=== PATIENT | female | born 1970 | race Caucasian/White ===

== ENCOUNTER 2016-10-10 16:47 | Emergency (ER) | payer OTHER ==
[2016-10-10 16:48] VITALS: BMI 25.3
[2016-10-10 17:04] VITALS: RESP 18; TEMP 97.9
[2016-10-10 18:48] VITALS: BP 120/69; PULSE 81; O2SAT 98
--- NOTE | 2016-10-10 18:53 | US ---
PROCEDURE: Right breast ultrasound HISTORY: palpable mass s/p mastectomy COMPARISON: 03/09/2015. TECHNIQUE: Standard protocol for this study/examination. FINDINGS: Indeterminate mass 1 o'clock 3 cm from the nipple 5 mm. Right axillary lymph node 8 x 19 mm. Morphologically indeterminate. Additional smaller axillary lymph nodes less than 1 cm. Neither of these findings apparent previously. IMPRESSION: Indeterminate mass 1 o'clock 3 cm from nipple 5 mm. Indeterminate axillary lymph nodes. Neither findings apparent on prior study. No evidence of skin thickening, cysts or other pathologic process. BIRADS 3 Probably BenignRecommendation: Elective followup/surgical consultation.
--- NOTE | 2016-10-10 19:00 | C.PDOC ---
History Of Present Illness The patient, a 46 y/o female whose PMHx includes left breast cancer, in remission, s/p bilateral mastectomy with breast reconstruction 10 years ago, presents to the ED for evaluation of a painful mass to her right breast which was noted around 4 days ago. Patient states she is scheduled for a follow up with her surgeon next week. Patient presents to the ED for evaluation because she was "unable to wait." Otherwise, pt denies fever, chills, breast skin changes, nipple changes, redness, wounds, denies known recent trauma/injury, denies any other active complaints. Ambulate to ED for evaluation, not in any apparent distress. Time Seen by Provider: 10/10/16 17:05 Chief Complaint (Nursing): Breast Problem History Per: Patient History/Exam Limitations: no limitations Onset/Duration Of Symptoms: Days Current Symptoms Are (Timing): Still Present Additional History Per: Patient Past Medical History Reviewed: Historical Data, Nursing Documentation, Vital Signs Vital Signs: Last Vital Signs Temp 97.9 F 10/10/16 16:58 Pulse 81 10/10/16 18:46 Resp 18 10/10/16 18:46 BP 120/69 10/10/16 18:46 Pulse Ox 98 10/10/16 20:46 - Medical History PMH: Anemia, Malignancy (breast Ca) Denies: Chronic Kidney Disease Surgical History: No Surg Hx - [facility] Procedures ANESTH INJEC PERIPH NERV (11/24/13) BILAT RADICAL MASTECTOMY (11/24/13) DEEP INFERIOR EPIGASTRIC ARTERY DRAFTER REFRIGERATION (ADA) FLAP, FREE (11/24/13) EXCISE AXILLARY NODE (11/24/13) INJECT/INFUSE NEC (11/24/13) INSERTION OF TOTALLY IMPLANTABLE VASC ACCESS DEVIC (02/17/14) LOCAL EXCIS BREAST LES (10/02/13) OTHER OPEN UMBILICAL HERNIORRHAPHY (11/24/13) THORAX SFT TISS XRAY NEC (02/17/14) Family History: States: Unknown Family Hx - Social History Hx Tobacco Use: No Hx Alcohol Use: No Hx Substance Use: No - Immunization History Hx Tetanus Toxoid Vaccination: Yes Hx Influenza Vaccination: No Hx Pneumococcal Vaccination: Yes Review Of Systems Except As Marked, All Systems Reviewed And Found Negative. Constitutional: Negative for: Fever, Chills Musculoskeletal: Positive for: Other (+painful mass on right breast. no recent trauma/injury ) Skin: Positive for: Other (no skin changes over right breast ) Physical Exam - Physical Exam Appears: Well, Non-toxic, No Acute Distress Skin: Normal Color, Warm, No Rash Eye(s): bilateral: Normal Inspection Throat: Normal, No Erythema, No Exudate, No Drooling Neck: Normal ROM, Trachea Midline, Supple Lymphatic: No Axilla Node Tenderness Chest: Symmetrical, Other (Right breast: small palpable mass at 1 o'clock slightly tender, 2cm diameter. No erythema, no flactulance.) Cardiovascular: Rhythm Regular Respiratory: No Decreased Breath Sounds, No Stridor, No Wheezing Gastrointestinal/Abdominal: Soft, No Tenderness Extremity: Normal ROM, No Pedal Edema Neurological/Psych: Oriented x3, Normal Speech ED Course And Treatment O2 Sat by Pulse Oximetry: 98 (on RA) Pulse Ox Interpretation: Normal - CT Scan/US US Right breast Other Rad Studies (CT/US): Interpreted By Me, Read By Radiologist, Radiology Report Reviewed CT/US Interpretation: Accession No. : [id number]. Patient Name / ID : BENITA BRIAN / [id number]. Exam Date : 10/10/2016 17:55:34 ( Approved ). Study Comment : Sex / Age : F / 46Y. Creator : Wil Castellanos MD. Dictator : Wil Castellanos MD. Highwall Drill Operator : Child Development Professor : Wil Castellanos MD. Approver2 : Report Date : 10/10/2016 18:51:30. My Comment : . PROCEDURE: Right breast ultrasound. HISTORY: palpable mass s/p mastectomy. COMPARISON : 03/09/2015. TECHNIQUE: Standard protocol for this study/examination. FINDINGS: Indeterminate mass 1 o'clock 3 cm from the nipple 5 mm. Right axillary lymph node 8 x 19 mm. Morphologically indeterminate. Additional smaller axillary lymph nodes less than 1 cm. Neither of these findings apparent previously. IMPRESSION: Indeterminate mass 1 o'clock 3 cm from nipple 5 mm. Indeterminate axillary lymph nodes. Neither findings apparent on prior study. No evidence of skin thickening, cysts or other pathologic process. BIRADS 3 Probably BenignRecommendation: Elective followup/surgical consultation. Progress Note: US Right breast ordered and reviewed. On re-evaluation, pt is afebrile, hemodynamicaly stable. Non-toxic. Right beast: no cellulitis, no flactulance. Exam c/w small nos Right mass. Axilla: no palpable tender lymphnodes. Results review and discussed with pt, copy given. Pt advised to F/ U with Surgeon as scheduled for further evaluation and tx. Pt understand, stable for discharge now. Disposition Counseled Patient/Family Regarding: Studies Performed, Diagnosis, Need For Followup - Disposition Referrals: Paradise Ortiz [Staff Provider] - Disposition: HOME/ ROUTINE Disposition Time: 18:55 Condition: GOOD Additional Instructions: Follow up with ENGINE LATHE SET UP OPERATOR and Surgery as scheduled on 10/16/16 for re-evaluation and further treatment as need Return to ED if any worsening or new changes. Instructions: Breast Mass (ED) - Clinical Impression Clinical Impression: Breast mass - PA / FINANCE ADMINISTRATOR / Resident Statement MD/DO has reviewed & agrees with the documentation as recorded. - Scribe Statement The provider has reviewed the documentation as recorded by the Scribe (Heidy Hernández) All medical record entries made by the Scribe were at my direction and personally dictated by me. I have reviewed the chart and agree that the record accurately reflects my personal performance of the history, physical exam, medical decision making, and the department course for this patient. I have also personally directed, reviewed, and agree with the discharge instructions and disposition.
== END 2016-10-10 19:20 | disposition home or self-care (01) ==
LOC: C.ER 16:47
DX: N63 Unspecified lump in breast (principal)

== ENCOUNTER 2017-10-05 05:55 | Day surgery (SDC) | payer OTHER ==
[2017-10-01 14:57] VITALS: BMI 28.3
[2017-10-05] MEDS ORDERED: ceFAZolin 1 gm in NS 1 GM/100 ML BAG IVPB ONE (07:40)
[2017-10-05] MEDS ORDERED: Bupivacaine HCl 0.25% PF (30 ml) Inj ONE (07:40)
[2017-10-05] MEDS ORDERED: Propofol 10 mg/ml Inj (20 ML) ONE (07:47)
[2017-10-05] MEDS ORDERED: Midazolam 2 MG/2 ML VIAL ONE (07:47)
[2017-10-05] MEDS ORDERED: Lidocaine/Epinephrine 1% 1:100000 10 ML IJ ONE (08:18)
[2017-10-05] MEDS ORDERED: HYDROmorphone 0.5 mg/0.5 ml ISec IVP PRN (08:24)
[2017-10-05] MEDS ORDERED: Morphine 4 MG/ML VIAL IVP PRN (08:28)
[2017-10-05] MEDS ORDERED: Oxycodone/Acetaminophen 5/325 mg Tab PO PRN (08:29)
--- NOTE | 2017-10-05 08:31 | PCM.SURG1 ---
Surgeon's Initial Post Op Note - Surgeon's Notes Surgeon: Dr. Abdi Edging Machine Setter: Char Ma, PGY-1 Pre-Operative Diagnosis: Breast cancer s/p mastectomy & reconstruction, chemotherapy Operative Findings: See op report Post-Operative Diagnosis: Breast cancer s/p mastectomy & reconstruction, chemotherapy Operation Performed: LIJ portcath removal, capsulectomy, 2 layer closure Specimen/Specimens Removed: portacath Estimated Blood Loss: EBL {In ML}: 5 Blood Products Given: N/A Drains Used: No Drains Post-Op Condition: Good Date of Surgery/Procedure: 10/05/17 Time of Surgery/Procedure: 08:31
[2017-10-05 08:53] VITALS: O2SAT 100
[2017-10-05 10:34] VITALS: BP 95/50; PULSE 83; RESP 15; TEMP 97.8
--- NOTE | 2017-10-05 11:50 | OP ---
PROCEDURE DATE: 10/05/2017. PREOPERATIVE DIAGNOSIS: Breast cancer, status post bilateral mastectomy and reconstruction. POSTOPERATIVE DIAGNOSIS: Breast cancer, status post bilateral mastectomy and reconstruction. PROCEDURES: 1. Port-A-Cath removal. 2. Capsulectomy and layered closure of wound, approximately 3 x 2 x 4 cm size. TYPE OF ANESTHESIA: Local anesthesia plus sedation. ESTIMATED BLOOD LOSS: Around 10 mL DRAINS: None. PATHOLOGY: The Port-A-Cath with catheter and capsule was sent to the pathology. COMPLICATIONS: None. INTRAOPERATIVE FINDINGS: The patient had left subclavian Port-A-Cath and very thick capsule. DESCRIPTION OF PROCEDURE: On intraoperative steps, this is a 47-year-old female who was seen in my office for Port-A-Cath removal and the patient is status post bilateral mastectomy with breast reconstruction for the breast cancer and the patient was consented for Port-A-Cath removal, brought to the OR, placed supine on the operating table. After induction of sedation, the left-sided chest and upper neck was prepped and draped in the usual sterile fashion. The local anesthesia was injected. Transverse incision was made on the previous incision. After incising skin and subcutaneous tissue and the capsule around the Port-A-Cath, the Port-A-Cath was removed and the catheter site was closed with a [id number] sutures and the capsule was resected to prevent seroma and now the wound was irrigated, wound was closed with deep sutures to close the cavity between the floor of the pouch and subcutaneous tissue. Now the deep subcutaneous tissue as well as the superficial subcutaneous tissue with 2-0 Vicryl, and skin with 4-0 Monocryl and dry sterile dressing was applied. The patient tolerated the procedure well. Count of the instrument and gauze was correct. The patient was reversed from sedation and sent to the Postanesthesia Care Unit in stable condition. Marques bAdi MD
== END 2017-10-05 10:58 | disposition home or self-care (01) ==
LOC: C.SDS 05:55
PROVIDERS: ATTEND Surgery Surgical Critical Care
DX: Z45.2 Encounter for adjustment and management of vascular access device (principal); C50.919 Malignant neoplasm of unspecified site of unspecified female breast; Z90.13 Acquired absence of bilateral breasts and nipples
CPT/HCPCS: 36590; 88302; J2001; J2250; J2704; J3010